=== PATIENT | female | born 1985 | race African-American/Black ===

== ENCOUNTER 2016-09-04 13:04 | Emergency (ER) | payer OTHER ==
[2016-09-04 13:45] LABS: URINE SOURCE CLEAN CATCH
[2016-09-04 13:54] LABS: URINE APPEARANCE CLOUDY; URINE BILIRUBIN NEG (NEG); URINE BLOOD 3+ (NEG); URINE COLOR YELLOW; URINE GLUCOSE NEG (NEG); URINE KETONE NEG (NEG); URINE LEUKOCYTE ESTERASE 2+ (NEG); URINE NITRATE NEG (NEG); URINE PH 5.5 (5-8); URINE PROTEIN TRACE (NEG); URINE SPECIFIC GRAVITY 1.032 (1.003-1.035)
[2016-09-04 13:57] LABS: CULTURE INDICATED? YES; URINE BACTERIA AUWI 2+ (NEGATIVE); URINE SQUAMOUS EPITHELIAL CELL MOD /[HPF]; UWBCS1 AUWI 25-50 (0-5)
[2016-09-06 23:30] LABS: CHLAMYDIA TRACH Not Detected (Not Detected); N GONOR Not Detected (Not Detected)
== END 2016-09-04 15:21 | disposition home or self-care (01) ==
LOC: CED 13:04 → CFTX 13:04 → CED 13:44 → CFTX 13:44
PROVIDERS: Nurse Practitioner
DX: A59.9 Trichomoniasis, unspecified (principal); Z88.6 Allergy status to analgesic agent; Z88.5 Allergy status to narcotic agent
CPT/HCPCS: 81003; 84703; 87086; 87491; 87591; 87808; 87905; 96372; 99283; J0696